=== PATIENT | male | born 1990 | race Hispanic/Latino ===

== ENCOUNTER 2023-07-07 23:30 | Emergency (ER) | payer SELFPAY ==
[2023-07-08] MEDS ORDERED: Acetaminophen 325 MG TAB ONE (01:14)
== END 2023-07-08 02:27 ==
LOC: ERS 23:30
DX: S02.2XXA Fracture of nasal bones, initial encounter for closed fracture (principal); I10 Essential (primary) hypertension; Z79.899 Other long term (current) drug therapy; Y04.0XXA Assault by unarmed brawl or fight, initial encounter
CPT/HCPCS: 70450; 70486